=== PATIENT | female | born 1960 | race Caucasian/White ===

== ENCOUNTER 2016-06-12 12:41 | Observation (INO) | payer OTHER ==
[~2016-06-12] VITALS: Ht 172.7 cm; Wt 89.8 kg
[~2016-06-12 12:41] MED LIST: NOLVADEX20 MG PO
[2016-06-12 13:34] LABS: MCH 31.9 PG (29.0-34.0); MCV 94.1 FL (83-99); MEAN PLAT.VOLUME 9.3 uM^3 (9.5-12.4); PLATELET COUNT 280 K/uL (156-360); RBC DIS.WIDTH-CV 12.4 % (11.8-14.6); RBC DIS.WIDTH-SD 41.8 % (39-53); RED BLOOD COUNT 4.57 M/uL (3.80-5.20); WHITE BLOOD COUNT 8.9 K/uL (4.1-10.2)
[2016-06-12 13:45] LABS: CHLORIDE 104 mEq/L (99-109); POTASSIUM 3.6 mEq/L (3.7-5.4); SODIUM 140 mEq/L (136-147)
[2016-06-12 13:46] LABS: GLUCOSE 116 mg/dL (70-99)
[2016-06-12 13:48] LABS: ANION GAP 10 MEQ/L (2-14)
[2016-06-12 13:50] LABS: GFR ESTIMATE (CALCULATED) > 59 mL/min/
[2016-06-12 13:51] LABS: UREA NITROGEN (BUN) 12 mg/dL (9-23)
[2016-06-12] MEDS ORDERED: NOLVADEX20 MG PO (17:13)
[2016-06-12] MEDS ORDERED: ADVIL200 MG PO (17:14)
[2016-06-12 20:18] LABS: Estimated Average Glucose 100 mg/dL (70-123); HEMOGLOBIN A1c (GLYCOHEMOGLOB) 5.1 % HGB (Below 5.7)
[2016-06-12 20:22] LABS: HDL CHOLESTEROL 66 MG/DL (Desirable>=50); LDL CHOLESTEROL 126 mg/dL (Desirable<100); NON-HDL CHOLESTEROL 147 mg/dL (Desirable<160); SAMPLE HEMOLYSIS CHECK 0; SAMPLE ICTERIC CHECK 0; SAMPLE LIPEMIA CHECK 0; TOTAL CHOLESTEROL 213 mg/dL (Desirable<200); TRIGLYCERIDES 103 MG/DL (Normal: <150)
[2016-06-13] VITALS: BP 115/70
[2016-06-13 04:00] VITALS: BP 102/59
[2016-06-13 06:52] LABS: HEMATOCRIT 38.2 % (36.0-46.0); MCH 32.2 PG (29.0-34.0); MCHC 33.5 G/DL (30.0-36.0); MCV 96.2 FL (83-99); MEAN PLAT.VOLUME 9.9 uM^3 (9.5-12.4); PLATELET COUNT 220 K/uL (156-360); RBC DIS.WIDTH-CV 12.4 % (11.8-14.6); RBC DIS.WIDTH-SD 43.6 % (39-53); RED BLOOD COUNT 3.97 M/uL (3.80-5.20)
[2016-06-13 06:53] LABS: WHITE BLOOD COUNT 5.4 K/uL (4.1-10.2)
[2016-06-13 06:54] LABS: ALKALINE PHOSPHATASE 69 IU/L (3-129); ANION GAP 5 MEQ/L (2-14); CHLORIDE 107 MEQ/L (99-109); GFR ESTIMATE (CALCULATED) > 59 mL/min/; GLUCOSE 95 mg/dL (70-99); SAMPLE HEMOLYSIS CHECK 0; SAMPLE ICTERIC CHECK 0; SAMPLE LIPEMIA CHECK 0; SODIUM 141 MEQ/L (136-147); TOTAL BILIRUBIN 0.4 MG/DL (0.0-1.0); UREA NITROGEN (BUN) 13 mg/dL (9-23)
[2016-06-13 06:55] LABS: POTASSIUM 4.5 MEQ/L (3.7-5.4)
[2016-06-13 08:33] VITALS: BP 134/70
[2016-06-13 12:04] VITALS: BP 115/65
[2016-06-13] MEDS ORDERED: PRAVASTATIN SOD40 MG PO (17:37)
[2016-06-13] MEDS ORDERED: ASPIR-LOW81 MG PO (17:37)
== END 2016-06-13 18:04 | disposition home or self-care (01) ==
LOC: EME 12:41 → EDOF 19:45 → 5WEST 19:45
PROVIDERS: Nurse Practitioner Adult Health
DX: R20.2 Paresthesia of skin (principal); R20.0 Anesthesia of skin; R55 Syncope and collapse; R42 Dizziness and giddiness; R51 Headache; Z85.3 Personal history of malignant neoplasm of breast; Z79.82 Long term (current) use of aspirin; Z92.21 Personal history of antineoplastic chemotherapy; Z92.3 Personal history of irradiation; Z80.3 Family history of malignant neoplasm of breast; Z80.52 Family history of malignant neoplasm of bladder; Z88.0 Allergy status to penicillin; Z88.2 Allergy status to sulfonamides
CPT/HCPCS: 70450; 70551; 71020; 80048; 80053; 80061; 83036; 85027; 93005; 93880; 99281; 99285; G0378